=== PATIENT | male | born 1995 | race Caucasian/White ===

== ENCOUNTER 2017-03-30 12:03 | Emergency (ER) | payer MEDICAID ==
[2017-03-30 14:46] VITALS: BP 136/78
== END 2017-03-30 15:11 | disposition home or self-care (01) ==
LOC: ED 12:03
DX: F41.9 Anxiety disorder, unspecified (principal)

== ENCOUNTER 2017-04-26 14:48 | Emergency (ER) | payer MEDICAID ==
[2017-04-26 16:27] LABS: BASOPHIL % 0.3 % (0-2); PLATELET COUNT 197 x10^3mcL (130-400); RED CELL DISTRIBUTION WIDTH 13.6 % (11.5-14.5)
[2017-04-26 16:40] LABS: CALCIUM 9.1 mg/dL (8.5-10.1); CHLORIDE SERUM 106 mmol/L (98-107); CREATININE SERUM 0.7 mg/dL (0.7-1.3); GFR1 > 60 mL/min; GLUCOSE SERUM 79 mg/dL (74-106); SODIUM SERUM 142 mmol/L (136-145)
[2017-04-26 16:45] LABS: ALBUMIN 4.2 g/dL (3.4-5.0); ALKALINE PHOSPHATASE 61 U/L (46-116); ALT/SGPT 61 U/L (16-63); AST/SGOT 32 U/L (15-37); TOTAL PROTEIN, SERUM 7.9 g/dL (6.4-8.2)
[2017-04-26 17:08] VITALS: BP 120/87
== END 2017-04-26 17:08 | disposition home or self-care (01) ==
LOC: ED 14:48
PROVIDERS: Emergency Medicine
DX: F41.9 Anxiety disorder, unspecified (principal); Z79.899 Other long term (current) drug therapy
CPT/HCPCS: 36415

== ENCOUNTER 2017-05-04 01:42 | Emergency (ER) | payer MEDICAID ==
[2017-05-04 04:28] VITALS: BP 125/80
== END 2017-05-04 04:28 | disposition home or self-care (01) ==
LOC: ED 01:42
DX: R06.00 Dyspnea, unspecified (principal); R42 Dizziness and giddiness; F99 Mental disorder, not otherwise specified; Z79.51 Long term (current) use of inhaled steroids; Z79.899 Other long term (current) drug therapy
CPT/HCPCS: Q0092

== ENCOUNTER 2017-11-03 21:35 | Emergency (ER) | payer SELFPAY ==
[~2017-11-03] VITALS: Ht 160 cm; Wt 52.2 kg
[2017-11-03 21:51] VITALS: Ht 160 cm; Wt 52.2 kg
[2017-11-04 01:20] VITALS: BP 125/78
== END 2017-11-04 01:20 | disposition home or self-care (01) ==
LOC: ED 21:35
DX: F41.9 Anxiety disorder, unspecified (principal); J06.9 Acute upper respiratory infection, unspecified; F10.20 Alcohol dependence, uncomplicated

== ENCOUNTER 2018-07-09 20:33 | Emergency (ER) | payer MEDICAID ==
[2018-07-09 20:34] VITALS: Ht 160 cm
[2018-07-09 20:58] VITALS: BP 145/89
== END 2018-07-09 20:58 | disposition home or self-care (01) ==
LOC: ED 20:33
DX: R10.10 Upper abdominal pain, unspecified (principal); F10.20 Alcohol dependence, uncomplicated; F41.9 Anxiety disorder, unspecified